=== PATIENT | male | born 1990 | race Caucasian/White ===

== ENCOUNTER 2016-04-23 21:23 | Emergency (ER) | payer SELFPAY ==
[2016-04-24] MEDS ORDERED: IBUPROFEN 800 MG TABLET ONE (00:58)
--- NOTE | 2016-04-24 08:08 | US ---
DUPLX SCAN VEIN EXT UNI LT COMPARISON: None. HISTORY: Left lower extremity swelling. Technique: The veins of the left lower extremity were interrogated with real-time grayscale ultrasound, color Doppler, and spectral Doppler. Vessel compressibility and flow augmentation were assessed. FINDINGS: Deep venous thrombosis: None. Common femoral vein: Normal. Proximal femoral vein: Normal. Saphenous vein junction: Normal. Mid to distal femoral vein: Normal. Popliteal vein: Normal. Peroneal veins: Normal. Posterior tibial veins: Normal. IMPRESSION: 1. Normal study. No evidence of deep venous thrombosis of the left lower extremity. Preliminary report by [facility] radiologist Macario Quintana M.D. 04/24/2016 at 00:57
== END 2016-04-24 01:15 | disposition home or self-care (01) ==
LOC: ED 21:23
DX: S80.12XA Contusion of left lower leg, initial encounter (principal); F10.10 Alcohol abuse, uncomplicated; F17.210 Nicotine dependence, cigarettes, uncomplicated; V03.90XA Pedestrian on foot injured in collision with car, pick-up truck or van, unspecified whether traffic or nontraffic accident, initial encounter; Y92.9 Unspecified place or not applicable
CPT/HCPCS: 99283 ×2; 93971; A9270